=== PATIENT | female | born 1990 | race Caucasian/White ===

== ENCOUNTER 2019-02-21 15:00 | Inpatient (IN) ==
[2019-02-21] MEDS ORDERED: LACTATED RINGERS 1,000 ML IV ONE (15:27)
[2019-02-21 15:37] LABS: Apearance,Urine CLEAR (Clear); Bilirubin,Urine Negative (Negative); Blood, Urine Large mg/dL (Negative); Glucose,Urine (UA) Negative (Negative); Ketones,Urine 20 mg/dL (Negative); Mucus,Urine Few /LPF (Occasional); Nitrite,Urine Negative (Negative); Protein,Urine Negative; RBC,Urine 29 /HPF (0-4); Squamous Epithelial Cell,Urine Occasional /HPF (0-10); Urine Color Dark yellow (Yellow); Urine Specific Gravity 1.023 (1.001-1.035); WBC,Urine 1 /HPF (0-6)
[2019-02-21] MEDS ORDERED: BETAMETH SODIUM PHOS/ACETATE 30 MG/5 ML VIAL IM SCH (16:00)
[2019-02-21] MEDS ORDERED: LACTATED RINGERS 1,000 ML IV SCH ×2 (16:25→22:30)
[2019-02-21] MEDS: TERBUTALINE 1 MG/1 ML VIAL SUBCUT PRN ×2 (16:30→17:18)
[2019-02-21] MEDS ORDERED: ONDANSETRON 4 MG/2 ML VIAL IV PRN ×2 (18:18→22:04)
[2019-02-21] MEDS ORDERED: MAGNESIUM SULF RIDER 100 ML IV ONE (18:18)
[2019-02-21] MEDS ORDERED: CALCIUM GLUCONATE 1,000 MG in SODIUM CHLORIDE 0.9% 100 ML IV PRN (18:18)
[2019-02-21] MEDS ORDERED: AMPICILLIN INJ 2,000 MG in SODIUM CHLORIDE 0.9% 100 ML IV ONE (18:22)
[2019-02-21] MEDS ORDERED: MAGNESIUM SULF DRIP 40 GM/1,000 ML ML IV SCH (18:30)
[2019-02-21 18:45] LABS: Basophils % 0.2 % (0.0-0.8); Eosinophils # 0.1 10*3/uL (0.0-0.87); Eosinophils % 1.2 % (0.00-10.9); Hematocrit 31.1 VOL% (35.7-47.0); Hemoglobin 10.6 GM/DL (12.0-16.0); Immature Granulocytes % 1.4 %; Immature Granulocytes Absolute 0.12 #; Lymphocytes # 0.8 10*3/uL (1.4-4.0); Lymphocytes % 9.8 % (21.3-54.2); Mean Corpuscular HGB Conc 34.1 GM/DL (32-36); Mean Corpuscular Volume 99.4 FL (87-102); Mean Platelet Volume 10.5 FL (9.6-12.0); Monocytes % 7.2 % (1.7-12.7); Neutrophils % 80.2 % (38.7-73.9); Platelet Count 126 T/CUMM (130-400); Red Blood Count 3.13 MC/CUMM (3.8-5.5); Red Cell Distribution Width 13.2 % (9.3-17.3); White Blood Count 8.5 T/CUMM (4-12)
[2019-02-21 19:07] LABS: Alanine Aminotransferase 15 U/L (13-56); Albumin 2.5 G/DL (3.4-5.0); Alkaline Phosphatase 85 U/L (45-117); Aspartate Amino Transferase 14 U/L (0-37); Bilirubin,Total < 0.39 MG/DL (0.2-1.0); Blood Urea Nitrogen 7 MG/DL (7-18); Calcium 8.4 MG/DL (8.5-10.1); Estimated Glom Filtration Rate 134 ML/MIN; Glucose 82 MG/DL (74-106); Osmolality,Calculated 269.8 MOS/KG (273-304); Total Protein 6.8 G/DL (6.4-8.3); Uric Acid 1.4 MG/DL (2.6-6.0)
[2019-02-21] MEDS ORDERED: CITRIC ACID/SODIUM CITRATE 30 ML UDCUP PO ONE (20:03)
[2019-02-21] MEDS ORDERED: ceFAZolin 2,000 MG in PREMIX 1 EACH IV ONE (20:03)
[2019-02-21] MEDS ORDERED: FAMOTIDINE 20 MG/2 ML VIAL IV ONE (20:03)
[2019-02-21] MEDS ORDERED: BUPIVACAINE SPINAL 0.75% 2 ML AMP SPINAL ONE (20:25)
[2019-02-21] MEDS ORDERED: BUPIVACAINE MPF 0.5% /EPI 30 ML VIAL ONE (20:25)
[2019-02-21] MEDS ORDERED: MORPHINE 10 MG/10 ML VIAL ONE (20:25)
[2019-02-21] MEDS ORDERED: DEXAMETHASONE 4 MG/1 ML VIAL ONE (20:26)
[2019-02-21] MEDS ORDERED: ONDANSETRON 4 MG/2 ML VIAL ONE (20:26)
[2019-02-21] MEDS ORDERED: PHENYLEPHRINE 1 MG/10 ML SYRINGE IV ONE (20:26)
[2019-02-21] MEDS ORDERED: OXYTOCIN/LR 0 UNIT/0 ML BAG IV ONE (20:29)
[2019-02-21] MEDS ORDERED: CARBOPROST TROMETHAMINE 250 MCG/ML AMP IM ONE (20:29)
[2019-02-21] MEDS ORDERED: METHYLERGONOVINE 0.2 MG/1 ML AMP ONE (20:29)
[2019-02-21] MEDS ORDERED: miSOPROStoL 200 MCG TABLET ONE (20:29)
[2019-02-21] MEDS ORDERED: OXYTOCIN/LR 30 UNIT/1,000 ML BAG IV ONE (20:30)
[2019-02-21] MEDS ORDERED: OXYTOCIN 10 UNIT/ML VIAL IM ONE (20:30)
[2019-02-21 21:57] LABS: Cord Arterial Blood HCO3 21.6 MMOL/L
[2019-02-21 22:01] LABS: Cord Venous Blood PCO2 40.6 MMHG
[2019-02-21 22:02] LABS: Cord Venous Blood PO2 19.2
[2019-02-21] MEDS ORDERED: RHO(D) IMMUNE GLOBULIN 300 MCG SYRINGE IM ONE (22:04)
[2019-02-21] MEDS ORDERED: OXYTOCIN/LR 20 UNIT/1,000 ML BAG IV ONE (22:04)
[2019-02-21] MEDS ORDERED: ACETAMINOPHEN 325 MG TABLET PO PRN (22:04)
[2019-02-21] MEDS ORDERED: SIMETHICONE CHEW 80 MG TABLET PO PRN (22:04)
[2019-02-21] MEDS ORDERED: MAGNESIUM HYDROXIDE SUSP 30 ML UDCUP PO PRN (22:04)
[2019-02-21 22:07] LABS: Barbiturates Screen,Urine Negative (Negative); Benzodiazepines Screen,Urine Negative (Negative); Cannabinoid Screen,Urine Positive (Negative); Opiate Screen,Urine Positive (Negative); Phencyclidine Screen,Urine Negative (Negative)
[2019-02-21] MEDS ORDERED: PROPOFOL 200 MG/20 ML VIAL IV ONE (22:13)
[2019-02-21] MEDS ORDERED: fentaNYL 100 MCG/2 ML VIAL ONE (22:13)
[2019-02-21] MEDS ORDERED: AMPICILLIN INJ 1,000 MG in SODIUM CHLORIDE 0.9% 100 ML IV SCH (22:30)
[2019-02-21 22:31] LABS: Apearance,Urine Slightly Hazy (Clear); Bilirubin,Urine Negative (Negative); Blood, Urine Moderate mg/dL (Negative); Glucose,Urine (UA) Negative (Negative); Hyaline Casts,Urine 5 /LPF (0-3); Ketones,Urine 80 mg/dL (Negative); Mucus,Urine Moderate /LPF (Occasional); Nitrite,Urine Negative (Negative); Protein,Urine Negative; RBC,Urine 10 /HPF (0-4); Squamous Epithelial Cell,Urine Occasional /HPF (0-10); Urine Color Amber (Yellow); Urine Specific Gravity 1.023 (1.001-1.035); WBC,Urine <1 /HPF (0-6)
[2019-02-22] MEDS: ceFAZolin 1,000 MG in SYRINGE 1 EACH IV SCH ×2 (05:33→15:49)
[2019-02-22 06:03] LABS: Basophils % 0.1 % (0.0-0.8); Hematocrit 26.9 VOL% (35.7-47.0); Immature Granulocytes % 1.3 %; Lymphocytes # 0.4 10*3/uL (1.4-4.0); Lymphocytes % 4.8 % (21.3-54.2); Mean Corpuscular HGB Conc 33.5 GM/DL (32-36); Mean Corpuscular Volume 99.6 FL (87-102); Monocytes % 4.3 % (1.7-12.7); Neutrophils % 89.5 % (38.7-73.9); Platelet Count 97 T/CUMM (130-400); White Blood Count 7.7 T/CUMM (4-12)
[2019-02-22 06:48] LABS: Hypochromasia 2+; Platelet Estimate Decreased
[2019-02-22] MEDS: METOCLOPRAMIDE 10 MG TABLET PO SCH ×3 (08:23→23:28)
[2019-02-22] MEDS: MULTIVITAMIN (PRENATAL) TABLET PO SCH (10:26)
[2019-02-22] MEDS: DOCUSATE SODIUM 100 MG CAPSULE PO SCH ×2 (10:26→20:29)
[2019-02-22] MEDS: IBUPROFEN 800 MG TABLET PO PRN (15:46)
[2019-02-22] MEDS ORDERED: RHO(D) IMMUNE GLOBULIN 300 MCG SYRINGE IM ONE (15:59)
[2019-02-23] MEDS: IBUPROFEN 800 MG TABLET PO PRN (07:55)
[2019-02-23 08:06] VITALS: BP 109/66
[2019-02-23] MEDS ORDERED: oxyCODONE/ACETAMINOPHEN 5-325 MG TABLET PO PRN (09:38)
[2019-02-23] MEDS: METOCLOPRAMIDE 10 MG TABLET PO SCH (10:13)
[2019-02-23] MEDS: MULTIVITAMIN (PRENATAL) TABLET PO SCH (10:13)
[2019-02-23] MEDS: DOCUSATE SODIUM 100 MG CAPSULE PO SCH (10:13)
[2019-02-23] MEDS ORDERED: DIPH/TET/ACEL PERT BOOSTER VACCINE 0.5 ML VIAL IM ONE (13:18)
[2019-02-23] MEDS ORDERED: MEASLES/MUMPS/RUBELLA VACCINE 0.5 ML VIAL SUBCUT ONE (13:47)
== END 2019-02-23 14:30 | disposition home or self-care (01) | DRG 540 ==
LOC: N.LDOUT 15:00 → N.LD 15:03 → N.OB 02-22 01:41
PROVIDERS: ADMIT Obstetrics & Gynecology; ATTEND Obstetrics & Gynecology
PROC: LDCSECT (ICD-10-PCS; 2019-02-21 21:00)